=== PATIENT | female | born 1995 ===

== ENCOUNTER 2019-03-13 11:17 | Emergency (ER) | payer SELFPAY ==
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
[2019-03-13] MEDS ORDERED: Adacel (T-DAP) 0.5 ML SYRINGE ONE (11:41)
[2019-03-13] MEDS ORDERED: Ibuprofen 800 MG TAB ONE (11:41)
== END 2019-03-13 12:02 | disposition home or self-care (01) ==
LOC: ERS 11:17
DX: S50.811A Abrasion of right forearm, initial encounter (principal); S80.811A Abrasion, right lower leg, initial encounter; G43.909 Migraine, unspecified, not intractable, without status migrainosus; Z79.899 Other long term (current) drug therapy; V43.52XA Car driver injured in collision with other type car in traffic accident, initial encounter
CPT/HCPCS: 71045; 90471; 90715